=== PATIENT | male | born 1955 | race Caucasian/White ===

== ENCOUNTER 2017-04-20 14:35 | Observation (INO) | payer BC, OTHER ==
[~2017-04-20] VITALS: Ht 180.3 cm; Wt 89.0 kg
[2017-04-20] VITALS (7 sets, daily range): BP systolic 110–142; BP diastolic 61–78; PULSE 72–84; RESP 16–19; TEMP 98–98.8; O2SAT 96–98
[~2017-04-20 14:35] MED LIST: AMLO10TA2 PO; FERR325T8 PO; METO50TA PO; PRIN20TA2 PO; SPIR25TA PO; VITAPOW PO; WARF-23 PO
--- NOTE | 2017-04-20 15:25 | PD ---
HPI Chief Complaint: Edema Time Seen by Provider: 15:23 Travel History International Travel<30 days: No Contact w/Intl Traveler<30days: No Traveled to known affect area: No History of Present Illness HPI Patient comes in complaining of right lower extremity worsening edema and wound evaluation. Patient states he has chronic edema has bilateral extremity as well as venous stasis dermatitis. Patient is on Coumadin for DVTs. Patient states wound on his right anterior muñoz opened approximately 2 months ago. Patient been using previous prescription cream from previous wound care however is not getting better. Patient states he was sent by his primary care doctor for evaluation. Patient denies any pain with this, fevers, trauma, shortness of breath, chest pain, nausea, vomiting, or numbness or tingling anywhere. Denies anything making it worse. PFSH Past Medical History Hx Anticoagulant Therapy: Yes (coumadin) Deep Vein Thrombosis: Yes Hypertension: Yes Renal Failure: Yes Social History Alcohol Use: No Tobacco Use: No Substance Use: No Allergies-Medications (Allergen,Severity, Reaction): Coded Allergies: No Known Allergies (Unverified , 04/20/17) Reported Meds & Prescriptions Reported Meds & Active Scripts Active Amlodipine (Amlodipine Besylate) 10 Mg Tab 10 Mg PO DAILY Metoprolol Tartrate 50 Mg Tab 50 Mg PO BID Spironolactone 25 Mg Tab 25 Mg PO DAILY Warfarin 5 Mg Tab 5 Mg PO DAILY Reported Ferrous Sulfate 325 Mg (65 Mg Iron) Tablet 325 Mg PO DAILY Vitamin D3 (Bulk) (Cholecalciferol (Bulk)) 100,000 Unit/Gm Powd 1,000 Mg PO DAILY Review of Systems Except as stated in HPI: all other systems reviewed are Neg Physical Exam Narrative GENERAL: Well-developed, overly nourished, in no acute distress, and non-ill appearing. SKIN: Open wound noted right anterior muñoz with surrounding erythematous is febrile with yellowish drainage. There is no crepitus. Patient reports tenderness. There is no fluctuation HEAD: Atraumatic. Normocephalic. EYES: Pupils equal and round. EOMI. No scleral icterus. No injection or drainage. ENT: No nasal bleeding or discharge. Mucous membranes pink and moist. NECK: Trachea midline. Supple. No nuclear rigidity. CARDIOVASCULAR: Dorsal pulses intact right slightly fainter than left.. Capillary refill less than 2 seconds. 1+ edema left lower extremity 3+ pitting edema right lower extremity. RESPIRATORY: No accessory muscle use. No respiratory distress. Clear to auscultation. Breath sounds equal bilaterally. MUSCULOSKELETAL: No obvious deformities. No clubbing. No cyanosis. No edema. Full range of motion. NEUROLOGICAL: Awake and alert. No obvious cranial nerve deficits. Motor grossly within normal limits. Normal speech. PSYCHIATRIC: Appropriate mood and affect; insight and judgment normal. Data Data Last Documented VS Vital Signs Date Time Temp Pulse Resp B/P (MAP) Pulse Ox O2 Delivery O2 Flow Rate FiO2 04/20/17 16:35 18 96 Room Air 04/20/17 14:37 98.8 84 Orders Orders Basic Metabolic Panel (Bmp) (04/20/17 15:21) Complete Blood Count With Diff (04/20/17 15:21) Prothrombin Time / Inr (Pt) (04/20/17 15:21) Act Partial Throm Time (Ptt) (04/20/17 15:21) Iv Access Insert/Monitor (04/20/17 15:21) Ecg Monitoring (04/20/17 15:21) Oximetry (04/20/17 15:21) Sodium Chloride 0.9% Flush (Ns Flush) (04/20/17 15:30) Wound Culture And Gram Stain (04/20/17 15:21) Us Leg Venous Doppler (04/20/17 15:21) Ceftriaxone Inj (Rocephin Inj) (04/20/17 17:15) Clindamycin Inj (Cleocin Inj) (04/20/17 17:15) Admit Order (Ed Use Only) (04/20/17 18:01) Labs Laboratory Tests Test 04/20/17 15:03 White Blood Count 6.3 TH/MM3 Red Blood Count 4.03 MIL/MM3 Hemoglobin 12.0 GM/DL Hematocrit 36.4 % Mean Corpuscular Volume 90.4 FL Mean Corpuscular Hemoglobin 29.8 PG Mean Corpuscular Hemoglobin Concent 33.0 % Red Cell Distribution Width 13.6 % Platelet Count 299 TH/MM3 Mean Platelet Volume 7.8 FL Neutrophils (%) (Auto) 58.2 % Lymphocytes (%) (Auto) 25.2 % Monocytes (%) (Auto) 12.7 % Eosinophils (%) (Auto) 3.5 % Basophils (%) (Auto) 0.4 % Neutrophils # (Auto) 3.7 TH/MM3 Lymphocytes # (Auto) 1.6 TH/MM3 Monocytes # (Auto) 0.8 TH/MM3 Eosinophils # (Auto) 0.2 TH/MM3 Basophils # (Auto) 0.0 TH/MM3 CBC Comment DIFF FINAL Differential Comment Prothrombin Time 29.3 SEC Prothromb Time International Ratio 2.5 RATIO Activated Partial Thromboplast Time 51.7 SEC Blood Urea Nitrogen 41 MG/DL Creatinine 2.57 MG/DL Random Glucose 88 MG/DL Calcium Level 8.5 MG/DL Sodium Level 137 MEQ/L Potassium Level 4.9 MEQ/L Chloride Level 106 MEQ/L Carbon Dioxide Level 24.9 MEQ/L Anion Gap 6 MEQ/L Estimat Glomerular Filtration Rate 25 ML/MIN MDM Medical Decision Making Medical Screen Exam Complete: Yes Emergency Medical Condition: Yes Interpretation(s) Ultrasound right lower extremity read by the radiologist shows: No evidence of right lower extremity DVT. Differential Diagnosis DVT, cellulitis, venous stasis dermatitis, sepsis, electrolyte abnormality, other Narrative Course Patient was seen and examined. Initial laboratory radiological studies were ordered. Patient was given IV antibiotics. Discussed patient with Dr. Christianson recommends having patient admitted for IV antibiotics and wound care consult. Discussed all findings and plan care of patient was agreeable for admission. All questions were answered. Patient reports he has chronic renal insufficiency was uncertain what his creatinine normally runs. Discussed patient with hospitalist who is agreeable to admit the patient. Patient remained stable the ED course. Physician Communication Physician Communication [address] Garrett's JESSICA Huang, who is agreeable to admit the patient. Diagnosis Primary Impression: Cellulitis of right lower extremity Additional Impression: Renal insufficiency Admitting Information Admitting Physician Requests: Observation Condition: Stable Cory Barbosa Apr 20, 2017 15:25
[2017-04-20] MEDS ORDERED: SODIUM CHLORIDE 0.9% FLUSH 10 ML FLUSH IV FLUSH PRN ×2 (15:30→18:30)
[2017-04-20 16:54] LABS: AUTOMATED NEUTROPHIL # 3.7 TH/MM3 (1.8-7.7); BASOPHIL % 0.4 % (0.0-2.0); EOSINOPHIL # 0.2 TH/MM3 (0-0.4); EOSINOPHIL % 3.5 % (0.0-4.0); HEMATOCRIT 36.4 % (39.0-51.0); HEMO FLAGS DIFF FINAL; LYMPH % 25.2 % (9.0-44.0); LYMPHOCYTE # 1.6 TH/MM3 (1.0-4.8); MEAN CELL VOLUME 90.4 FL (80.0-100.0); MEAN CORPUSCULAR HEMOGLOBIN 29.8 PG (27.0-34.0); MONO % 12.7 % (0.0-8.0); NEUT % 58.2 % (16.0-70.0); PLATELET COUNT 299 TH/MM3 (150-450); RED BLOOD COUNT 4.03 MIL/MM3 (4.50-5.90); RED CELL DISTRIBUTION WIDTH 13.6 % (11.6-17.2); WHITE BLOOD COUNT 6.3 TH/MM3 (4.0-11.0)
--- NOTE | 2017-04-20 16:57 | RADRPT ---
EXAM DATE/TIME: 04/20/2017 15:57 [facility] COMPARISON: No previous studies available for comparison. INDICATIONS : Right leg swelling. MEDICAL HISTORY : Hypertension. Deep venous thrombosis. Renal insufficiency. Anticoagulant therapy, Coumadin. Claudi cation. Venous stasis dermatitis. SURGICAL HISTORY : Laser vein surgery. ENCOUNTER: Initial ACUITY: 2 day PAIN SCORE: 0/10 LOCATION: Right leg. TECHNIQUE: Venous ultrasound of the leg was performed from the inguinal ligament to the proximal calf. Real-denilson e, color Doppler and spectral tracing, compression and augmentation techniques were used. FINDINGS: There is normal compressibility of the deep venous system from the inguinal region to the proximal ca lf. No echogenic clot is seen in the lumen of the common femoral, femoral, popliteal, and posterior tibial veins. There is a normal response of the venous system to proximal and distal augmentation an d respiration. Duplicated popliteal vein noted. CONCLUSION: No evidence of right lower extremity DVT. Bryn Eckert MD on April 20, 2017 at 16:54 Board Certified Radiologist. This report was verified electronically.
[2017-04-20 17:15] LABS: APTT (PATIENT) 51.7 SEC (24.3-30.1); INTERNATIONAL NORMALIZED RATIO 2.5 RATIO; PROTHROMBIN TIME - PATIENT 29.3 SEC (9.8-11.6)
[2017-04-20] MEDS ORDERED: cefTRIAXone INJ 1,000 MG in SODIUM CHLORIDE 0.9% INJ 100 ML IV ONE (17:15)
[2017-04-20] MEDS ORDERED: CLINDAMYCIN INJ 600 MG in SODIUM CHLORIDE 0.9% INJ 100 ML IV ONE (17:15)
[2017-04-20 17:20] LABS: BICARBONATE 24.9 MEQ/L (21.0-32.0); POTASSIUM 4.9 MEQ/L (3.5-5.1)
--- NOTE | 2017-04-20 18:28 | HHI.HP ---
[facility] Service [facility] Primary Care Physician AYAN Salas Admission Diagnosis right lower extremity cellulitis, renal insufficiency Diagnoses: Chief Complaint: Lower extremity swelling Travel History International Travel<30 Days: No Contact w/Intl Traveler <30 Da: No Traveled to Known Affected Are: No History of Present Illness 61-year-old male with a past medical history of DVT, venous stasis, chronic right lower extremity wound, HTN, CKD who presented for worsening right lower extremity swelling. The patient has had a wound on his right chin for several months due to chronic venous stasis. He had been going to wound care, but recently has been caring for the wound himself dressing it with Mepilex AG. He states that for the past week he's been having worsening swelling of the leg. He isn't having associated redness and clear watery drainage around the ulcer. He denies any fever, chills, vomiting, cough, diarrhea. He does have some kidney disease, but unsure of his baseline. He does take spironolactone for swelling. Review of Systems Constitutional: DENIES: Diaphoretic episodes, Fatigue, Fever, Weight gain, Weight loss, Chills, Dizziness Endocrine: DENIES: Heat/cold intolerance, Polydipsia, Polyuria Eyes: DENIES: Blurred vision, Diplopia, Eye inflammation Ears, nose, mouth, throat: DENIES: Tinnitus, Hearing loss, Vertigo Respiratory: DENIES: Apneas, Cough, Snoring Cardiovascular: DENIES: Chest pain, Palpitations, Syncope Gastrointestinal: DENIES: Abdominal pain, Black stools, Bloody stools Genitourinary: DENIES: Sexual dysfunction, Urinary frequency, Urinary incontinence Musculoskeletal: DENIES: Joint pain, Muscle aches, Stiffness Integumentary: COMPLAINS OF: Abnormal pigmentation, Rash, DENIES: Nail changes , Pruritus Hematologic/lymphatic: COMPLAINS OF: Lymphadenopathy, DENIES: Bruising Immunologic/allergic: DENIES: Eczema, Urticaria Neurologic: DENIES: Abnormal gait, Headache, Localized weakness, Paresthesias, Seizures Psychiatric: DENIES: Anxiety, Confusion, Mood changes, Depression, Delusions Except as stated in HPI: all other systems reviewed are Neg Past Family Social History Past Medical History History of DVTs Hypertension Chronic lymphedema Chronic wound right lower extremity Chronic Coumadin. Renal insufficiency Morbid obesity Past Surgical History Denies Reported Medications Reported Meds & Active Scripts Active Amlodipine (Amlodipine Besylate) 10 Mg Tab 10 Mg PO DAILY Metoprolol Tartrate 50 Mg Tab 50 Mg PO BID Spironolactone 25 Mg Tab 25 Mg PO DAILY Warfarin 5 Mg Tab 5 Mg PO DAILY Reported Ferrous Sulfate 325 Mg (65 Mg Iron) Tablet 325 Mg PO DAILY Vitamin D3 (Bulk) (Cholecalciferol (Bulk)) 100,000 Unit/Gm Powd 1,000 Mg PO DAILY Allergies: Coded Allergies: No Known Allergies (Unverified , 04/20/17) Active Ordered Medications Current Medications Sodium Chloride (NS Flush) 2 ml UNSCH PRN IV FLUSH FLUSH AFTER USING IV ACCESS ; Start 04/20/17 at 15:30 Ceftriaxone Sodium 1000 mg/ Sodium Chloride 100 ml @ 200 mls/hr ONCE ONCE IV Last administered on 04/20/17t 17:25; Start 04/20/17 at 17:15; Stop 04/20/17 at 17:44; Status DC Clindamycin Phosphate 600 mg/ Sodium Chloride 104 ml @ 208 mls/hr ONCE ONCE IV ; Start 04/20/17 at 17:15; Stop 04/20/17 at 17:44; Status DC Amlodipine Besylate (Norvasc) 10 mg DAILY PO ; Start 04/21/17 at 09:00; Status UNV Ferrous Sulfate (Ferrous Sulfate) 325 mg DAILY PO ; Start 04/21/17 at 09:00; Status UNV Metoprolol Tartrate (Lopressor) 50 mg BID PO ; Start 04/20/17 at 21:00; Status UNV Warfarin Sodium (Coumadin) 5 mg DAILY PO ; Start 04/21/17 at 09:00; Status UNV Non-Formulary Medication 1,000 mg DAILY PO ; Start 04/21/17 at 09:00; Status UNV Sodium Chloride (NS Flush) 2 ml BID IV FLUSH ; Start 04/20/17 at 21:00; Status UNV Sodium Chloride (NS Flush) 2 ml UNSCH PRN IV FLUSH FLUSH AFTER USING IV ACCESS ; Start 04/20/17 at 18:30; Status UNV Sodium Chloride 1,000 ml @ 100 mls/hr Q10H IV ; Start 04/20/17 at 18:18; Status UNV Vancomycin HCl 1000 mg/Sodium Chloride 250 ml @ 250 mls/hr ONCE ONCE IV ; Start 04/20/17 at 19:30; Stop 04/20/17 at 20:29; Status UNV Pharmacy Profile Note 0 ml @ 0 mls/hr UNSCH XX ; Start 04/20/17 at 18:30; Status UNV Acetaminophen (Tylenol) 500 mg Q4H PRN PO PAIN 1-4 AND/OR FEVER >101F; Start at 18:30; Status UNV Tramadol HCl (Ultram) 50 mg Q8H PRN PO PAIN SCALE 5 TO 10; Start 04/20/17 at 18 :30; Status UNV Family History Hypertension and varicose veins Father had lung cancer and tobacco abuse Social History Denies any tobacco alcohol or illicit drugs Physical Exam Vital Signs Vital Signs Date Time Temp Pulse Resp B/P (MAP) Pulse Ox O2 Delivery O2 Flow Rate FiO2 04/20/17 16:35 18 96 Room Air 04/20/17 14:37 98.8 84 18 142/78 (99) 96 Room Air Physical Exam GENERAL: Well-developed well-nourished. In no acute distress. SKIN: Warm and dry. Right lower extremity dry ulcer with surrounding erythema, induration, and no drainage. Chronic lymphedema bilateral lower extremities HEENT: Normocephalic. Pupils equal and round. Mucous membranes pink and moist. CARDIOVASCULAR: Regular rate and rhythm. No murmur appreciated. S1-S2 no S3- S4 no heave no thrill or murmur no rubs or gallops RESPIRATORY: No accessory muscle use. Clear to auscultation. Breath sounds equal bilaterally. GASTROINTESTINAL: Abdomen soft, non-tender, nondistended. Bowel sounds x4. Morbidly obese MUSCULOSKELETAL: Right lower extremity with large nonpitting edema. Left lower extremity with trace nonpitting edema. No calf tenderness bilaterally. NEUROLOGICAL: Awake and alert. No focal neurological deficits. Moves upper and lower extremities spontaneously. Normal speech. Lymphedema bilaterally PSYCHIATRIC: Appropriate mood and affect; insight and judgment normal. Insight and judgment are good Mood and behavior appropriate Laboratory Laboratory Tests Test 04/20/17 15:03 White Blood Count 6.3 Red Blood Count 4.03 Hemoglobin 12.0 Hematocrit 36.4 Mean Corpuscular Volume 90.4 Mean Corpuscular Hemoglobin 29.8 Mean Corpuscular Hemoglobin Concent 33.0 Red Cell Distribution Width 13.6 Platelet Count 299 Mean Platelet Volume 7.8 Neutrophils (%) (Auto) 58.2 Lymphocytes (%) (Auto) 25.2 Monocytes (%) (Auto) 12.7 Eosinophils (%) (Auto) 3.5 Basophils (%) (Auto) 0.4 Neutrophils # (Auto) 3.7 Lymphocytes # (Auto) 1.6 Monocytes # (Auto) 0.8 Eosinophils # (Auto) 0.2 Basophils # (Auto) 0.0 CBC Comment DIFF FINAL Differential Comment Prothrombin Time 29.3 Prothromb Time International Ratio 2.5 Activated Partial Thromboplast Time 51.7 Blood Urea Nitrogen 41 Creatinine 2.57 Random Glucose 88 Calcium Level 8.5 Sodium Level 137 Potassium Level 4.9 Chloride Level 106 Carbon Dioxide Level 24.9 Anion Gap 6 Estimat Glomerular Filtration Rate 25 Date/Time Source Procedure Growth Status 04/20/17 15:50 Wound Leg Gram Stain - Final Resulted 04/20/17 15:50 Wound Leg Wound Culture Pending Resulted Result Diagram: 04/20/17 1503 04/20/17 1503 Imaging Last Impressions Lower Extremity Ultrasound 04/20/17 1521 Signed Impressions: Service Date/Time: March 15:57 - CONCLUSION: No evidence of right lower extremity DVT. MD Fredo Miranda VTE Risk Assessment [place] VTE Risk Assessment: Mod/High Risk (score >= 2) Caprini Risk Assessment Model Point Value = 1 Point Value = 2 Point Value = 3 Point Value = 5 Age 41-60 Minor surgery BMI > 25 kg/m2 Swollen legs Varicose veins or History of unexplained or recurrent spontaneous Oral contraceptives or hormone replacement Sepsis (< 1 month) Serious lung disease, including pneumonia (< 1 month) Abnormal pulmonary function Acute myocardial infarction Congestive heart failure (< 1 month) History of inflammatory bowel disease Medical patient at bed rest Age 61-74 Arthroscopic surgery Major open surgery (> 45 min) Laparoscopic surgery (> 45 min) Malignancy Confined to bed (> 72 hours) Immobilizing plaster cast Central venous access Age >= 75 History of VTE Family history of VTE Factor V Leiden Prothrombin [id number] Lupus anticoagulant Anticardiolipin antibodies Elevated serum homocysteine Heparin-induced thrombocytopenia Other congenital or acquired thrombophilia Stroke (< 1 month) Elective arthroplasty Hip, pelvis, or leg fracture Acute spinal cord injury (< 1 month) Prophylaxis Regimen Total Risk Factor Score Risk Level Prophylaxis Regimen 0-1 Low Early ambulation 2 Moderate Order ONE of the following: *Sequential Compression Device (SCD) *Heparin 5000 units SQ BID 3-4 Higher Order ONE of the following medications: *Heparin 5000 units SQ TID *Enoxaparin/Lovenox 40 mg SQ daily (WT < 150 kg, CrCl > 30 mL/min) *Enoxaparin/Lovenox 30 mg SQ daily (WT < 150 kg, CrCl > 10-29 mL/min) *Enoxaparin/Lovenox 30 mg SQ BID (WT < 150 kg, CrCl > 30 mL/min) AND/OR *Sequential Compression Device (SCD) 5 or more Highest Order ONE of the following medications: *Heparin 5000 units SQ TID (Preferred with Epidurals) *Enoxaparin/Lovenox 40 mg SQ daily (WT < 150 kg, CrCl > 30 mL/min) *Enoxaparin/Lovenox 30 mg SQ daily (WT < 150 kg, CrCl > 10-29 mL/min) *Enoxaparin/Lovenox 30 mg SQ BID (WT < 150 kg, CrCl > 30 mL/min) AND *Sequential Compression Device (SCD) Assessment and Plan Assessment and Plan 61-year-old male with a past medical history of DVT, venous stasis, chronic right lower extremity wound, HTN, CKD who presented for worsening right lower extremity swelling Acute cellulitis on chronic right lower extremity wound: Afebrile with no leukocytosis. -May need debridement, consult wound care physician -Continue IV antibiotics with vancomycin and follow-up wound culture results -Pain control with tramadol as needed ISAURO on reported CKD: Creatinine 2.57, no previous labs for comparison. -Hold Aldactone -IVF -Follow up BMP History of DVT on chronic anticoagulation: INR 2.5. Ultrasound showed no evidence of right lower extremity DVT. -Continue warfarin Hypertension: Chronic. Currently controlled. -Continue amlodipine and metoprolol -Monitor DVT prophylaxis: Warfarin. SCDs. Code Status Full code Discussed Condition With Patient, Dr. Garrett and ER and RN Attending Statement The exam, history, and the medical decision-making described in the above note were completed with the assistance of the mid-level provider. I reviewed and agree with the findings presented. I attest that I had a [id number] encounter with the patient on the same day, and personally performed and documented my assessment and findings in the medical record. Sal Adams Apr 20, 2017 18:28 Melvin Garrett DO Apr 20, 2017 18:34
[2017-04-20] MEDS ORDERED: traMADol HCL 50 MG TAB PO PRN (18:30)
[2017-04-20] MEDS ORDERED: Vancomycin Consult Pharmacy 1 EA OTHER SCH (18:30)
[2017-04-20] MEDS ORDERED: ACETAMINOPHEN 500 MG CPLT PO PRN (18:30)
[2017-04-20] MEDS ORDERED: VANCOMYCIN INJ 1,000 MG in SODIUM CHLOR 0.9% 250 ML INJ 250 ML IV ONE (19:30)
[2017-04-20] MEDS: SODIUM CHLORIDE 0.9% FLUSH 10 ML FLUSH IV FLUSH SCH (21:00)
[2017-04-20] MEDS: SODIUM CHLOR 0.9% 1000 ML INJ 1,000 ML IV SCH (21:18)
[2017-04-20] MEDS: METOPROLOL TARTRATE 50 MG TAB PO SCH (21:19)
[2017-04-21 00:24] VITALS: BP 109/69; PULSE 79; RESP 19; TEMP 97.6; O2SAT 95
[2017-04-21 04:20] VITALS: BP 110/66; PULSE 73; RESP 18; TEMP 97.5; O2SAT 95
[2017-04-21 07:25] VITALS: BP 112/69; PULSE 74; RESP 18; TEMP 97.6; O2SAT 96
[2017-04-21 07:32] LABS: BASOPHIL # 0.1 TH/MM3 (0-0.2); BASOPHIL % 1.1 % (0.0-2.0); EOSINOPHIL # 0.2 TH/MM3 (0-0.4); EOSINOPHIL % 4.1 % (0.0-4.0); HEMATOCRIT 33.4 % (39.0-51.0); HEMO FLAGS DIFF FINAL; LYMPH % 25.4 % (9.0-44.0); LYMPHOCYTE # 1.4 TH/MM3 (1.0-4.8); MEAN CELL VOLUME 90.7 FL (80.0-100.0); MEAN CORPUSCULAR HEMOGLOBIN 30.4 PG (27.0-34.0); MEAN CORPUSCULAR HGB CONC 33.5 % (32.0-36.0); MONO % 14.4 % (0.0-8.0); PLATELET COUNT 267 TH/MM3 (150-450); RED BLOOD COUNT 3.68 MIL/MM3 (4.50-5.90); RED CELL DISTRIBUTION WIDTH 13.5 % (11.6-17.2); WHITE BLOOD COUNT 5.4 TH/MM3 (4.0-11.0)
[2017-04-21 07:41] LABS: INTERNATIONAL NORMALIZED RATIO 2.9 RATIO; PROTHROMBIN TIME - PATIENT 33.2 SEC (9.8-11.6)
[2017-04-21 07:55] LABS: ANION GAP 7 MEQ/L (5-15); AST (GOT) 15 U/L (15-37); BICARBONATE 25.2 MEQ/L (21.0-32.0); BLOOD UREA NITROGEN 36 MG/DL (7-18); CHLORIDE 107 MEQ/L (98-107); GLOMERULAR FILTRATION RATE 31 ML/MIN (>89); MAGNESIUM 2.2 MG/DL (1.5-2.5); POTASSIUM 4.7 MEQ/L (3.5-5.1); SODIUM (NA) 139 MEQ/L (136-145)
[2017-04-21 07:56] LABS: ALT (GPT) 21 U/L (12-78)
[2017-04-21 08:05] LABS: ALKALINE PHOSPHATASE 58 U/L (45-117); FREE T4 1.34 NG/DL (0.76-1.46); TOTAL BILIRUBIN ADULT 0.3 MG/DL (0.2-1.0)
[2017-04-21] MEDS ORDERED: CHOLECALCIFEROL 1000 MG PO SCH (09:00)
[2017-04-21] MEDS: SODIUM CHLOR 0.9% 1000 ML INJ 1,000 ML IV SCH (10:18)
[2017-04-21] MEDS: METOPROLOL TARTRATE 50 MG TAB PO SCH (10:18)
[2017-04-21] MEDS: CHOLECALCIFEROL (VIT D3) 1000 UNIT TAB PO SCH (10:18)
[2017-04-21] MEDS: FERROUS SULFATE 325 MG (65 MG ELEMENTAL IRON) TAB PO SCH (10:18)
[2017-04-21] MEDS: SODIUM CHLORIDE 0.9% FLUSH 10 ML FLUSH IV FLUSH SCH (10:19)
[2017-04-21 11:32] VITALS: BP 114/63; PULSE 76; RESP 18; TEMP 98; O2SAT 97
--- NOTE | 2017-04-21 11:32 | HHI.PR ---
Subjective Remarks Follow-up for lower extremity ulcer and cellulitis. The patient is feeling much better today. He feels like his leg is less swollen and painful. He denies any fevers or chills. Has been tolerating oral intake. Objective Vitals Vital Signs Date Time Temp Pulse Resp B/P (MAP) Pulse Ox O2 Delivery O2 Flow Rate FiO2 04/21/17 07:25 97.6 74 18 112/69 (83) 96 04/21/17 04:20 97.5 73 18 110/66 (81) 95 04/21/17 00:24 97.6 79 19 109/69 (82) 95 04/20/17 21:20 98.0 76 19 121/74 (90) 04/20/17 18:00 74 18 117/61 (79) 97 Room Air 04/20/17 17:00 72 18 119/67 (84) 98 Room Air 04/20/17 16:35 18 96 Room Air 04/20/17 16:00 76 18 110/67 (81) 97 Room Air 04/20/17 15:15 78 16 118/67 (84) 97 Room Air 04/20/17 14:37 98.8 84 18 142/78 (99) 96 Room Air I/O 04/20/17 04/20/17 04/20/17 04/21/17 04/21/17 04/21/17 07:00 15:00 23:00 07:00 15:00 23:00 Intake Total 104 ml Balance 104 ml Intake IV Total 104 ml # Voids 2 Result Diagram: 04/21/17 0624 04/21/17 0624 Imaging Last Impressions Lower Extremity Ultrasound 04/20/17 1521 Signed Impressions: Service Date/Time: March 15:57 - CONCLUSION: No evidence of right lower extremity DVT. Bryn Eckert MD Objective Remarks GENERAL: Well-developed well-nourished obese. In no acute distress. SKIN: Warm and dry. Chronic lymphedema bilateral lower extremities. Right lower extremity dry ulcer with improving surrounding erythema, induration. HEENT: Normocephalic. Pupils equal and round. Mucous membranes pink and moist. CARDIOVASCULAR: Regular rate and rhythm. No murmur appreciated. RESPIRATORY: No accessory muscle use. Clear to auscultation. Breath sounds equal bilaterally. GASTROINTESTINAL: Abdomen soft, non-tender, nondistended. Bowel sounds x4. MUSCULOSKELETAL: Right lower extremity with large nonpitting edema. Left lower extremity with trace nonpitting edema. No calf tenderness bilaterally. NEUROLOGICAL: Awake and alert. No focal neurological deficits. Moves upper and lower extremities spontaneously. Normal speech. Lymphedema bilaterally PSYCHIATRIC: Appropriate mood and affect; insight and judgment normal. A/P Assessment and Plan 61-year-old male with a past medical history of DVT, venous stasis, chronic right lower extremity wound, HTN, CKD who presented for worsening right lower extremity swelling Acute cellulitis on chronic right lower extremity wound: Afebrile with no leukocytosis. -May need debridement, consulted wound care physician -Continue IV antibiotics with vancomycin and follow-up wound culture results -Pain control with tramadol as needed ISAURO on reported CKD: Creatinine 2.57, unknown baseline with no previous labs for comparison. Creatinine did improve to 2.14 overnight. -Hold Aldactone -IVF -Monitor History of DVT on chronic anticoagulation: INR therapeutic at 2.9. Ultrasound showed no evidence of right lower extremity DVT. -Continue warfarin Hypertension: Chronic. Currently controlled. -Continue amlodipine and metoprolol -Monitor DVT prophylaxis: Warfarin. SCDs. Discharge Planning Follow-up wound culture and wound care physician recommendations. Follow-up renal function. Sal Adams Apr 21, 2017 11:32
[2017-04-21 12:47] LABS: HEMOGLOBIN A1a 1.1 %; HEMOGLOBIN Ao 83.9 %; HEMOGLOBIN LA1C 2.1 %; HEMOGLOBIN P3 5.9 %
[2017-04-21] MEDS ORDERED: VANCOMYCIN INJ 1,250 MG in SODIUM CHLOR 0.9% 250 ML INJ 250 ML IV ONE (14:00)
[2017-04-21 16:05] VITALS: BP 115/66; PULSE 71; RESP 18; TEMP 98.2; O2SAT 97
[2017-04-21] MEDS: WARFARIN SOD 5 MG TAB PO SCH (17:41)
[2017-04-21 19:54] VITALS: BP 130/77; PULSE 79; RESP 18; TEMP 98.4; O2SAT 98
--- NOTE | 2017-04-21 20:47 | MB ---
cc: THUY AVENDANO DPM DATE OF CONSULTATION 04/21/2017 DATE OF 1955 REASON FOR CONSULTATION Bilateral lower extremity wounds. HISTORY OF PRESENT ILLNESS The patient is a 61-year-old male with past medical history of DVT, venous stasis chronic bilateral lower extremity wounds, HTN, CKD. The patient states he has an outpatient visit with his vascular surgeon for his lower extremity. He does his own wound care and has not seen a wound care doctor in approximately 3 years since he moved to [place]. REVIEW OF SYSTEMS Six point review of systems unremarkable. PAST MEDICAL HISTORY History of DVT, hypertension, chronic lymphedema and venous insufficiency, renal insufficiency, morbid obesity. PAST SURGICAL HISTORY Denies. ACTIVE MEDICATIONS See HPI. ALLERGIES NKDA. FAMILY HISTORY Noncontributory. SOCIAL HISTORY Denies alcohol, tobacco, illicit drugs. PHYSICAL EXAMINATION DIRECTED EXAMINATION: Bilateral lower extremity with +3 nonpitting edema on the right and +1 in the left. There is no calf tenderness. There is no palpable cords. The right lateral leg has an ulceration approximately 6 x 3 cm with approximately 1/2 cm in depth. There is no exposed tendon. On the left leg there is 4 x 2 centimeter x 0.3 cm ulceration, again with no exposed tendon. There is no active drainage. There is no serous weeping. Muscle strength intact. LABORATORY DATA WBC on 04/19/2017 5.4, RBC of 3.6, H&H 11.2 and 33.4. IMAGING STUDIES Lower extremity ultrasound is completed on 04/20/2017 and is negative for any DVT. ASSESSMENT/PLAN 1. Venous insufficiency, bilateral chronic venous stasis ulcers. Recommended bilateral Unna boots. The patient can follow up with Dr. Avendano within 1 week of discharge as an outpatient. He must follow up with his vascular doctor for venous intervention. A recommendation for home health care can be placed so that the patient may have wound care dressings carried out on a weekly basis for his Unna boots. Thuy Avendano DPM SR/EO /8:18 PM /8:27 PM [facility]
[2017-04-21] MEDS ORDERED: VANCOMYCIN INJ 900 MG in SODIUM CHLOR 0.9% 250 ML INJ 250 ML IV SCH (23:00)
[2017-04-22] VITALS: BP 121/64; PULSE 74; RESP 18; TEMP 98.4; O2SAT 97
[2017-04-22] MEDS: PIPERACIL-TAZO 3.375 GM PREMIX 50 ML IV SCH ×5 (02:04→21:09)
[2017-04-22] MEDS: METOPROLOL TARTRATE 50 MG TAB PO SCH ×3 (02:04→21:08)
[2017-04-22] MEDS: SODIUM CHLORIDE 0.9% FLUSH 10 ML FLUSH IV FLUSH SCH ×3 (02:05→21:08)
[2017-04-22 05:53] VITALS: BP 141/79; PULSE 70; RESP 18; TEMP 98.7; O2SAT 96
--- NOTE | 2017-04-22 08:19 | HHI.FF ---
Face to Face Verification Diagnosis: (1) Chronic cutaneous venous stasis ulcer (2) PAD (peripheral artery disease) (3) CKD (chronic kidney disease) (4) HTN (hypertension) (5) Recurrent deep venous thrombosis (6) Wound healing, delayed Home Health Nursing Order: Medical education Signs/symptoms of disease process Wound care and dressing changes (needs bilateral unna boots, change dressings every 4-5days, per Dr. Avendano (podiatry)) I have seen patient Shashi Mijares on 04/22/17. My clinical findings support the need for the requested home health care services because: Ltd mobility - disease progression Deconditioned w/ increased weakness Limited ability to care for self High risk of falls I certify that my clinical findings support that this patient is homebound because: Unsteady gait/balance Unsafe to leave home unassisted Unable to use public transportation Theresa Mccartney PA-C Apr 22, 2017 8:19 am
[2017-04-22 08:23] VITALS: BP 122/73; PULSE 68; RESP 20; TEMP 98.2; O2SAT 96
[2017-04-22] MEDS ORDERED: [UNRECOGNIZED DRUG - CODE] (08:23)
[2017-04-22 08:25] LABS: INTERNATIONAL NORMALIZED RATIO 2.8 RATIO; PROTHROMBIN TIME - PATIENT 32.6 SEC (9.8-11.6)
[2017-04-22] MEDS: FERROUS SULFATE 325 MG (65 MG ELEMENTAL IRON) TAB PO SCH (08:40)
[2017-04-22] MEDS: CHOLECALCIFEROL (VIT D3) 1000 UNIT TAB PO SCH (08:41)
[2017-04-22 08:44] LABS: BICARBONATE 25.5 MEQ/L (21.0-32.0); POTASSIUM 4.6 MEQ/L (3.5-5.1)
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
[2017-04-22 12:44] VITALS: BP 119/70; PULSE 68; RESP 20; TEMP 98.2; O2SAT 95
[2017-04-22] MEDS ORDERED: VANCOMYCIN INJ 1,250 MG in SODIUM CHLOR 0.9% 250 ML INJ 250 ML IV ONE (14:00)
[2017-04-22 16:35] VITALS: BP 118/60; PULSE 68; RESP 20; TEMP 98.2; O2SAT 95
[2017-04-22] MEDS: WARFARIN SOD 5 MG TAB PO SCH (16:43)
[2017-04-22 21:51] VITALS: BP 117/70; PULSE 68; RESP 18; TEMP 98.1; O2SAT 96
[2017-04-23 01:24] VITALS: BP 162/86; PULSE 73; RESP 18; TEMP 98.8; O2SAT 98
[2017-04-23] MEDS: PIPERACIL-TAZO 3.375 GM PREMIX 50 ML IV SCH ×2 (01:42→08:43)
[2017-04-23 06:04] VITALS: BP 137/83; PULSE 87; RESP 18; TEMP 98.8; O2SAT 98
[2017-04-23 07:44] VITALS: BP 127/73; PULSE 73; RESP 17; TEMP 98.3; O2SAT 98
[2017-04-23] MEDS: CHOLECALCIFEROL (VIT D3) 1000 UNIT TAB PO SCH (08:42)
[2017-04-23] MEDS: FERROUS SULFATE 325 MG (65 MG ELEMENTAL IRON) TAB PO SCH (08:42)
[2017-04-23] MEDS: METOPROLOL TARTRATE 50 MG TAB PO SCH (08:42)
[2017-04-23] MEDS: SODIUM CHLORIDE 0.9% FLUSH 10 ML FLUSH IV FLUSH SCH (08:43)
[2017-04-23] MEDS ORDERED: LEVOFLOXACIN 750 MG TAB PO SCH (11:00)
[2017-04-23 11:02] LABS: INTERNATIONAL NORMALIZED RATIO 2.3 RATIO; PROTHROMBIN TIME - PATIENT 26.4 SEC (9.8-11.6)
[2017-04-23 11:16] VITALS: BP 123/72; PULSE 70; RESP 16; TEMP 98.4; O2SAT 99
[2017-04-23 11:40] LABS: BICARBONATE 23.8 MEQ/L (21.0-32.0); POTASSIUM 4.5 MEQ/L (3.5-5.1)
--- NOTE | 2017-04-23 12:15 | HHI.PR ---
Subjective Remarks Follow up for BLE wounds/cellulitis. The patient reports continued improvement of the wound erythema/drainage overnight. Denies fevers/chills. He is able to ambulate without difficulty. He is tolerating oral intake. He wants to go home. Objective Vitals Vital Signs Date Time Temp Pulse Resp B/P (MAP) Pulse Ox O2 Delivery O2 Flow Rate FiO2 04/23/17 11:16 98.4 70 16 123/72 (89) 99 04/23/17 07:44 98.3 73 17 127/73 (91) 98 04/23/17 06:04 98.8 87 18 137/83 (101) 98 04/23/17 01:24 98.8 73 18 162/86 (111) 98 04/22/17 21:51 98.1 68 18 117/70 (86) 96 04/22/17 16:35 98.2 68 20 118/60 (79) 95 04/22/17 12:44 98.2 68 20 119/70 (86) 95 I/O 04/22/17 04/22/17 04/22/17 04/23/17 04/23/17 04/23/17 07:00 15:00 23:00 07:00 15:00 23:00 Intake Total 100 ml 250 ml 50 ml Balance 100 ml 250 ml 50 ml Intake IV Total 100 ml 250 ml 50 ml # Voids 1 # Bowel Movements 1 Result Diagram: 04/21/17 0624 04/23/17 1012 Imaging Last Impressions Lower Extremity Ultrasound 04/20/17 1521 Signed Impressions: Service Date/Time: March 15:57 - CONCLUSION: No evidence of right lower extremity DVT. Bryn Eckert MD Objective Remarks GENERAL: Well-nourished, well-developed pleasant male patient in [facility]. SKIN: Warm and dry. No rash. RLE muñoz with large dry ulcer, surrounding erythema /edema/induration. LLE lateral muñoz with smaller ulcer, mild surrounding erythema/induration. HEENT: Normocephalic. Atraumatic.Pupils equal and round. Mucous membranes pink and moist. CARDIOVASCULAR: Regular rate and rhythm. S1, S2 noted. No murmur appreciated. RESPIRATORY: No accessory muscle use. Clear to auscultation. Breath sounds equal bilaterally. GASTROINTESTINAL: Abdomen soft, non-tender, nondistended. Normoactive bowel sounds x4. MUSCULOSKELETAL: No obvious deformities. Chronic BLE lymphedema, worse on the right. NEUROLOGICAL: Awake and alert. No obvious cranial nerve deficits. Motor grossly within normal limits. Normal speech. PSYCHIATRIC: Appropriate mood and affect; insight and judgment normal. Medications and IVs Current Medications Medications (Trade) Dose Ordered Sig/Susan Route Start Time Stop Time Status Last Admin (Norvasc) 10 mg DAILY PO 04/21/17 09:00 04/23/17 08:42 (Ferrous Sulfate) 325 mg DAILY PO 04/21/17 09:00 04/23/17 08:42 (Lopressor) 50 mg BID PO 04/20/17 21:00 04/23/17 08:42 (Coumadin) 5 mg DAILY@1600 PO 04/21/17 16:00 04/22/17 16:43 (NS Flush) 2 ml BID IV FLUSH 04/20/17 21:00 04/23/17 08:43 (NS Flush) 2 ml UNSCH PRN IV FLUSH 04/20/17 18:30 Pharmacy Profile Note 0 ml @ 0 mls/hr UNSCH OTHER 04/20/17 18:30 (Tylenol) 500 mg Q4H PRN PO 04/20/17 18:30 (Ultram) 50 mg Q8H PRN PO 04/20/17 18:30 04/20/17 23:19 (Vitamin D3) 1,000 units DAILY PO 04/21/17 09:00 04/23/17 08:42 (Cleocin) 450 mg Q8HR PO 04/23/17 14:00 (Levaquin) 750 mg Q48H PO 04/23/17 11:00 A/P Assessment and Plan 61-year-old male with a past medical history of DVT, venous stasis, chronic right lower extremity wound, HTN, CKD who presented for worsening right lower extremity swelling Acute cellulitis on chronic right lower extremity wound: Afebrile with no leukocytosis. -Consulted wound care physician/podiatry, seen by Dr. Avendano, recommends bilateral Unna Boot, change every 4-5days with [facility], and cleared for discharge. -Wound culture with pseudomonas, E. coli, and and staph aureus -Given IV Antibiotics with Vanco/Zosyn, now changed to Clinda and Levaquin ( renally dosed). -Pain control with tramadol as needed -Symptoms improved, plan to discharge once unna boots placed and HHC arranged ISAURO on CKD, stage III: Creatinine 2.57, unknown baseline with no previous labs for comparison. Creatinine did improve to 2.01. -Held Aldactone -Given IVF -Continue to Monitor -patient already has scheduled appointment with nephrology . History of DVT on chronic anticoagulation: INR therapeutic at 2.9. Ultrasound showed no evidence of right lower extremity DVT. -Continue warfarin Hypertension: Chronic. Currently controlled. -Continue amlodipine and metoprolol -Monitor DVT prophylaxis: Warfarin. SCDs. Discharge Planning Plan to discharge after Unna boots placed and C arranged. Theresa Mccartney PA-C Apr 23, 2017 12:15 pm
[2017-04-23] MEDS ORDERED: CLIN150 PO (12:19)
[2017-04-23] MEDS ORDERED: LEVA750T9 PO (12:19)
[2017-04-23] MEDS ORDERED: CLINDAMYCIN 150 MG CAP PO SCH (14:00)
[2017-04-23 16:07] VITALS: BP 121/67; PULSE 68; RESP 20; TEMP 98.2; O2SAT 96
[2017-04-23] MEDS: WARFARIN SOD 5 MG TAB PO SCH (16:16)
--- NOTE | 2017-04-23 18:31 | HHI.DS ---
Discharge Summary Admission Date Apr 20, 2017 at 6:03 pm Discharge Date: Apr 23, 2017 Admitting Diagnosis right lower extremity cellulitis, renal insufficiency (1) Bilateral lower leg cellulitis ICD Code: L03.116 - Cellulitis of left lower limb; L03.115 - Cellulitis of right lower limb Diagnosis: Principal (2) Wound healing, delayed ICD Code: T14.8 - Other injury of unspecified body region Diagnosis: Principal Status: Acute Procedures None. Brief History - From Admission 61-year-old male with a past medical history of DVT, venous stasis, chronic right lower extremity wound, HTN, CKD who presented for worsening right lower extremity swelling. The patient has had a wound on his right chin for several months due to chronic venous stasis. He had been going to wound care, but recently has been caring for the wound himself dressing it with Mepilex AG. He states that for the past week he's been having worsening swelling of the leg. He isn't having associated redness and clear watery drainage around the ulcer. He denies any fever, chills, vomiting, cough, diarrhea. He does have some kidney disease, but unsure of his baseline. He does take spironolactone for swelling. CBC/BMP: 04/21/17 0624 04/23/17 1012 Significant Findings Laboratory Tests Test 04/21/17 06:24 04/22/17 08:03 04/23/17 10:12 Red Blood Count 3.68 MIL/MM3 (4.50-5.90) Hemoglobin 11.2 GM/DL (13.0-17.0) Hematocrit 33.4 % (39.0-51.0) Monocytes (%) (Auto) 14.4 % (0.0-8.0) Eosinophils (%) (Auto) 4.1 % (0.0-4.0) Prothrombin Time 33.2 SEC (9.8-11.6) 32.6 SEC (9.8-11.6) 26.4 SEC (9.8-11.6) Blood Urea Nitrogen 36 MG/DL (7-18) 27 MG/DL (7-18) 24 MG/DL (7-18) Creatinine 2.14 MG/DL (0.60-1.30) 2.01 MG/DL (0.60-1.30) 2.09 MG/DL (0.60-1.30) Albumin 2.2 GM/DL (3.4-5.0) Calcium Level 8.0 MG/DL (8.5-10.1) 8.4 MG/DL (8.5-10.1) Estimat Glomerular Filtration Rate 31 ML/MIN (>89) 34 ML/MIN (>89) 32 ML/MIN (>89) Imaging Last Impressions Lower Extremity Ultrasound 04/20/17 1521 Signed Impressions: Service Date/Time: March 15:57 - CONCLUSION: No evidence of right lower extremity DVT. Bryn Eckert MD PE at Discharge GENERAL: Well-nourished, well-developed pleasant male patient in [facility]. SKIN: Warm and dry. No rash. RLE muñoz with large dry ulcer, surrounding erythema /edema/induration. LLE lateral muñoz with smaller ulcer, mild surrounding erythema/induration. HEENT: Normocephalic. Atraumatic.Pupils equal and round. Mucous membranes pink and moist. CARDIOVASCULAR: Regular rate and rhythm. S1, S2 noted. No murmur appreciated. RESPIRATORY: No accessory muscle use. Clear to auscultation. Breath sounds equal bilaterally. GASTROINTESTINAL: Abdomen soft, non-tender, nondistended. Normoactive bowel sounds x4. MUSCULOSKELETAL: No obvious deformities. Chronic BLE lymphedema, worse on the right. NEUROLOGICAL: Awake and alert. No obvious cranial nerve deficits. Motor grossly within normal limits. Normal speech. PSYCHIATRIC: Appropriate mood and affect; insight and judgment normal. Hospital Course 61-year-old male with a past medical history of DVT, venous stasis, chronic right lower extremity wound, HTN, CKD who presented for worsening right lower extremity swelling Acute cellulitis on chronic right lower extremity wound: Afebrile with no leukocytosis. Consulted wound care physician/podiatry, seen by Dr. Avendano, recommends bilateral Unna Boot, change every 4-5days with [facility], and cleared for discharge. Wound culture with pseudomonas, E. coli, and and staph aureus. Given IV Antibiotics with Vanco/Zosyn, now changed to Clinda and Levaquin (renally dosed). Pain control with tramadol as needed. Symptoms improved, discharged after unna boots placed and C arranged by case management. ISAURO on CKD, stage III: Creatinine 2.57, unknown baseline with no previous labs for comparison. Creatinine did improve to 2.01. Held Aldactone. Given IVF. Patient already has scheduled appointment with nephrology . Stable for discharge. History of DVT on chronic anticoagulation: INR therapeutic at 2.9. Ultrasound showed no evidence of right lower extremity DVT. Continue warfarin. Hypertension: Chronic. Currently controlled. Continued amlodipine and metoprolol. DVT prophylaxis: Warfarin. SCDs. Pt Condition on Discharge: Stable Discharge Disposition: Disch w/ Home Health Serv Discharge Time: > 30 minutes Discharge Instructions DIET: Follow Instructions for: Heart Healthy Diet Activities you can perform: Regular-No Restrictions Follow up Referrals: PCP Follow-up - 1 Week with [facility] - 1 Week with Thuy Avendano DPM New Medications: Zinc Oxide/Gauze Bandage (Primer Modified Unna Boot Bndg) 25 %-3" X 10 Yard Bandage UNIT .XX DAILY, #20 Apply Unna Boot to bilateral legs, change every 4-5days Clindamycin (Cleocin) 150 Mg Cap 450 MG PO Q8HR for infection for 10 Days, CAP Levofloxacin (Levaquin) 750 Mg Tablet 750 MG PO Q48H for infection, #5 TAB Take 1 tablet every other day for 10 days. Start on 04/25. Continued Medications: Amlodipine (Amlodipine) 10 Mg Tab 10 MG PO DAILY for Blood Pressure Management, #90 TAB 1 Refill Cholecalciferol (Bulk) (Vitamin D3 (Bulk)) 100,000 Unit/Gm Powd 1000 MG PO DAILY Ferrous Sulfate (Ferrous Sulfate) 325 Mg (65 Mg Iron) Tablet 325 MG PO DAILY for Nutritional Supplement, #30 TAB 0 Refills Metoprolol Tartrate (Metoprolol Tartrate) 50 Mg Tab 50 MG PO BID, #90 TAB 1 Refill Warfarin (Warfarin) 5 Mg Tab 5 MG PO DAILY for Blood Clot Prevention, #90 TAB Discontinued Medications: Spironolactone (Spironolactone) 25 Mg Tab 25 MG PO DAILY, #30 TAB 5 Refills Theresa Mccartney PA-C Apr 23, 2017 18:31
[2017-04-23] MEDS ORDERED: PHARMACY ORDERED LAB ONE ×2 (20:45→22:45)
[2017-05-15] MEDS ORDERED: WARF-23 PO (09:07)
[2017-05-15] MEDS ORDERED: METO50TA PO (09:07)
== END 2017-04-23 18:16 | disposition home or self-care (01) ==
LOC: NEPE 14:35 → NEDA 18:03 → NEPHCDU 20:20
PROVIDERS: ADMIT Internal Medicine; ATTEND Internal Medicine
DX: L03.115 Cellulitis of right lower limb (principal); N17.9 Acute kidney failure, unspecified; N18.3 Chronic kidney disease, stage 3 (moderate); I12.9 Hypertensive chronic kidney disease with stage 1 through stage 4 chronic kidney disease, or unspecified chronic kidney disease; L97.909 Non-pressure chronic ulcer of unspecified part of unspecified lower leg with unspecified severity; I83.009 Varicose veins of unspecified lower extremity with ulcer of unspecified site; I82.401 Acute embolism and thrombosis of unspecified deep veins of right lower extremity; I87.2 Venous insufficiency (chronic) (peripheral); B95.61 Methicillin susceptible Staphylococcus aureus infection as the cause of diseases classified elsewhere; B96.5 Pseudomonas (aeruginosa) (mallei) (pseudomallei) as the cause of diseases classified elsewhere; B96.20 Unspecified Escherichia coli [E. coli] as the cause of diseases classified elsewhere; Z79.01 Long term (current) use of anticoagulants
CPT/HCPCS: 80048; 80053; 80202; 83036; 83735; 84100; 84439; 84443; 85025; 85610; 85730; 86403; 87070; 87077; 87147; 87186; 93971; 96361; 96365; 96366; 96367; 96376; 99285; G0378; J0696; J2543; J3370; J7030; J7050